=== PATIENT | male | born 1960 | race Caucasian/White ===

== ENCOUNTER → 2021-05-18 16:01 | Outpatient (BNVA) | payer OTHER, SELFPAY | PROVIDERS: Family Provider Internal Medicine; PCP Internal Medicine; Visit Provider Surgery | DX: Z86.010 Personal history of colon polyps (principal); Z20.822 Contact with and (suspected) exposure to COVID-19 | CPT/HCPCS: 87635 ==

== ENCOUNTER 2021-05-21 07:51 | Day surgery (SDC) | payer OTHER, SELFPAY ==
[2021-05-15 10:57] VITALS: BMI 31.1
[2021-05-19 06:38] VITALS: BMI 30.4
[2021-05-21 08:06] VITALS: BP 173/110; PULSE 67; RESP 18; TEMP 36.8; O2SAT 97
[2021-05-21] MEDS: sodium chloride 0.9% 1,000 ML 30 ML IV (08:24)
--- NOTE | 2021-05-21 08:47 | ANES.PREANE2 ---
Pre-Anesthetic Assessment Pre-Anesthetic Assessment: Height/Weight: Height 1.73 m Weight 90.718 kg Temp Pulse Resp BP Pulse Ox 98.3 F 67 18 173/110 97 05/21/21 08:06 05/21/21 08:06 05/21/21 08:06 05/21/21 08:06 05/21/21 08:06 Preop Diagnosis: screening colonoscopy Proposed Procedure: Operation Date: 05/21/21 09:00 Proposed Procedures p Colonoscopy 46322 Z86.010(Not Applicable) - Sunday Morton MD Was Beta Anna taken within 24 hours: N/A Last intake: Intake Last Liquid Date 05/20/21 Last Liquid Time 22:00 Last Solid Date 05/19/21 Last Solid Time 18:00 Social: Social History: No alcohol and No tobacco Exam: Pre-Anes Outpt Exam: alert, oriented x 3, clear to auscultation bilaterally and regular rate & rhythm Airway: Submandibular: WNL Cervical ROM: WNL MP: 2 Dentition: Full History/ROS: No significant history except as noted and No significant complaints Pulmonary: Pulmonary: None reported CV/HEM: CV/HEM: HTN : : None reported Hepatic: Hepatic: None reported GI: GI: None reported Metabolic: Metabolic: None reported Musc/skel: Musc/skel: None reported Neuropsych: Neuropsych: None reported Anesthetic Plan: ASA status: 2 Anesthesia: Anesthesia Evaluation and MAC Risk of > 500 ml blood loss (7ml/kg in children): No Meds/Allergies Current Medications: Current Medications Generic Name Dose Route Start Last Admin Trade Name Freq PRN Reason Stop Dose Admin Sodium Chloride 1,000 mls @ 30 ml s/hr 05/21/21 08:15 05/21/21 08:24 Sodium Chloride 0.9% IV 05/22/21 08:14 30 mls/hr .Q24H HAVEN Administration PFSH Anesthesia PFSH: Medical History Arthritis Hypertension Surgical History History of colonoscopy with polypectomy 2014 History of tonsillectomy History of umbilical hernia repair 2018 Family History Other Cancer Denies family history of Diabetes CAD (coronary artery disease) Hypertension Stroke Social History Smoking and tobacco status: never smoked Alcohol intake: current Alcohol intake frequency: holidays/special occasions only Lives independently: Yes Household members: spouse Marital status: Data Anesthesia Cardiac Studies: No Data to Display
--- NOTE | 2021-05-21 08:49 | W.PM.OPSFHP ---
Same Day Surgery H&P Indication for Procedure/HPI DATE OF PROCEDURE: May 21, 2021 CHIEF COMPLAINT/INDICATIONFOR SURGICAL PROCEDURE: screening colonoscopy PREOP DIAGNOSIS: screening colonoscopy PLANNED PROCEDRUE: Operation Date: 05/21/21 09:00 Proposed Procedures p Colonoscopy 16461 Z86.010(Not Applicable) - Sunday Morton MD Medications/Allergies* Home Medications Medication Instructions Recorded Confirmed Type aspirin 81 mg tablet,delayed 81 mg PO DAILY 04/06/21 05/21/21 History release cholecalciferol (vitamin D3) 25 25 mcg PO DAILY 04/06/21 05/21/21 History mcg (1,000 unit) capsule lisinopril 20 mg tablet 20 mg PO DAILY 04/06/21 05/21/21 History meloxicam 7.5 mg tablet 7.5 mg PO DAILY 04/06/21 05/21/21 History tolterodine 2 mg tablet 2 mg PO DAILY 04/06/21 05/21/21 History lysine [L-Lysine] 1,000 mg PO DAILY 05/21/21 05/21/21 History Allergies/Adverse Reactions Allergy/AdvReac Type Severity Reaction Status Date / Time No Known Allergies Allergy Verified 05/21/21 08:21 Current Medications: Generic Name Dose Route Start Last Admin Trade Name Freq PRN Reason Stop Dose Admin Sodium Chloride 1,000 mls @ 30 mls/hr 05/21/21 08:15 05/21/21 08:24 Sodium Chloride 0.9% IV 05/22/21 08:14 30 mls/hr .Q24H HAVEN Administration Pertinent History/Comorbid Conditions* Medical History (Updated 04/06/21 @ 08:26 by Sunday Morton MD) Arthritis Hypertension Surgical History (Updated 04/06/21 @ 08:26 by Sunday Morton MD) History of colonoscopy with polypectomy 2014 History of tonsillectomy History of umbilical hernia repair 2018 Family History (Updated 04/06/21 @ 08:21 by Maria L Kendrick) Cancer Denies family history of Diabetes CAD (coronary artery disease) Hypertension Stroke Social History Smoking and tobacco status: never smoked Alcohol intake: current Alcohol intake frequency: holidays/special occasions only Lives independently: Yes Household members: spouse Marital status: Pertinent Exam Findings alert, oriented x 3 and regular rate & rhythm Recommendations Surgery/Procedure today Coding Level of Care Code Acute Marketing Research Intern for [employer]
[2021-05-21 09:06] VITALS: BP 146/95; PULSE 67; RESP 20; TEMP 36.4; O2SAT 98
[2021-05-21 09:15] VITALS: BP 167/98; PULSE 66; RESP 18; TEMP 36.8; O2SAT 96
--- NOTE | 2021-05-21 14:01 | ANE.PACU2 ---
Inpatient post-anesthesia follow up: Airway intact: Yes Vital signs: Temperature 98.2 F Pulse Rate 66 Respiratory Rate 18 Blood Pressure 167/98 Pulse Oximetry 96 Oxygen Delivery Me thod Room Air Oxygen Flow Rate Fraction of Inspir ed Oxygen Hydration adequate: Yes Nausea and vomiting: No Pain level: 1 Mental status: Baseline
== END 2021-05-21 10:00 | disposition home or self-care (01) ==
PROVIDERS: PCP Internal Medicine; Visit Provider Surgery
PROC: 0DJD8ZZ Inspection of Lower Intestinal Tract, Via Natural or Artificial Opening Endoscopic (ICD-10-PCS; CPT 45378; principal; 2021-05-21 09:00)
DX: Z12.11 Encounter for screening for malignant neoplasm of colon (principal); Z86.010 Personal history of colon polyps; M19.90 Unspecified osteoarthritis, unspecified site; I10 Essential (primary) hypertension; Z79.82 Long term (current) use of aspirin; Z80.0 Family history of malignant neoplasm of digestive organs; D12.2 Benign neoplasm of ascending colon
CPT/HCPCS: 45380; 88305; 96360; J2704; J7030

== ENCOUNTER 2023-08-21 11:34 | Emergency (ER) | payer OTHER, SELFPAY ==
[2023-08-21 11:44] VITALS: BP 190/105; PULSE 63; RESP 17; O2SAT 97
[2023-08-21 11:49] VITALS: BP 178/110; PULSE 64; RESP 18; TEMP 36.6; O2SAT 95
--- NOTE | 2023-08-21 11:49 | ED_ITS ---
HPI - Male Genitourinary General: Chief complaint: Urogenital-Male Stated complaint: unable to urinate Time Seen by Provider: 08/21/23 11:35 Source: patient Mode of arrival: ambulatory Limitations: no limitations History of Present Illness: Patient is a 63-year-old male who presents to the emergency room for difficulty urination. Patient states that he woke up this morning and stated he was not able to urinate. Patient reports that he had a procedure at [facility] in [place] 2 weeks ago for BPH and urinary retention. Patient denies any complications from procedure. Patient states the past couple days, he has felt some urinary retention and not fully emptying bladder. Denies any pain at this time or other complaints. MD Complaint: dysuria Onset (ago): day(s) (2) Associated symptoms: Deny hematuria, nausea or vomiting Review of Systems Const: Denies: fever(s) or chills Eyes: Denies: change in vision or blurry vision Card: Denies: chest pain or palpitations Resp: Denies: dyspnea or productive cough GI: Denies: abdominal pain, nausea or vomiting : Reports: difficulty urinating, urinary frequency and urinary dribbling; Denies: flank pain or hematuria Musc: Denies: neck pain or back pain PFSH ED 2 PFSH: Medical History Arthritis History of colon polyps Hypertension Surgical History History of colonoscopy with polypectomy (05/21/21) 2015 History of tonsillectomy History of umbilical hernia repair 2018 Family History Other Cancer Denies family history of Diabetes CAD (coronary artery disease) Hypertension Stroke Social History Smoking and tobacco status: never smoked Alcohol intake: current Alcohol intake frequency: holidays/special occasions only Substance/Drug Use: never Lives independently: Yes Household members: spouse Marital status: Physical Exam Const: COMMON NORMALS: no acute distress, patient oriented x3 and healthy appearing GENERAL APPEARANCE: cooperative HENMT: COMMON NORMALS: normocephalic HEAD & SCALP: normocephalic Eye: COMMON NORMALS: Equal, round and reactive pupils present and EOMs intact bilaterally PUPIL: Yes Equal, round and reactive pupils present Neck/C-Spine: COMMON NORMALS: full ROM and no JVD Chest: CHEST: Yes Symmetrical chest wall rise Resp: COMMON NORMALS: normal respiratory effort Cardio: COMMON NORMALS: no JVD and S1 normal heart sound present HEART SOUNDS: S1 normal heart sound present GI: COMMON NORMALS: Normal to inspection, nondistended, normoactive bowel sounds present : COMMON NORMALS: Yes no CVA tenderness BLADDER/KIDNEY EXAM: Yes bladder normal to palpation and Yes no CVA tenderness Back/Pelvis: COMMON NORMALS: no CVA tenderness Neuro: COMMON NORMALS: patient oriented x3 Course Vital Signs: Vital signs: Vital Signs Temperature 98 F 08/21/23 11:49 Pulse Rate 64 08/21/23 11:49 Respiratory Rate 18 08/21/23 11:49 Blood Pressure 178/110 08/21/23 11:49 Pulse Oximetry 95 08/21/23 11:49 Oxygen Delivery Me thod Room Air 08/21/23 11:49 MDM - Male Medical Decision Making Patient presents here with difficulty urinating has been able to urinate here without any difficulty he states he feels improved now. He has appointment with his PCP tomorrow he follows up with urologist later as well he is stable for discharge at this time. Medical Records I reviewed the patient's medical records. Lab Data I reviewed the patient's lab results. Laboratory Results Urine Color Yellow (Yellow) 08/21/23 11:51 Urine Appearance Clear (CLEAR) 08/21/23 11:51 Urine pH 7 (5-7) 08/21/23 11:51 Ur Specific [place] 1.000 (1.005-1.030) L 08/21/23 11:51 Urine Protein Neg (Negative) 08/21/23 11:51 Urine Glucose (UA) Norm (Normal) 08/21/23 11:51 Urine Ketones Negative (Negative) 08/21/23 11:51 Urine Blood 3+ (Negative) H 08/21/23 11:51 Urine Nitrate Negative (Negative) 08/21/23 11:51 Urine Bilirubin Neg (Negative) 08/21/23 11:51 Urine Urobilinogen Norm mg/dL (Negative) 08/21/23 11:51 Ur Leukocyte Esterase 1+ (Negative) H 08/21/23 11:51 Urine RBC 0-4 /hpf (0-2) H 08/21/23 11:51 Urine WBC 5-10 /hpf (0-5) H 08/21/23 11:51 Ur Squamous Epith Cells 0-4 /hpf (0-5) H 08/21/23 11:51 Amorphous Sediment Not Reportable 08/21/23 11:51 Urine Bacteria Trace /hpf (NONE) 08/21/23 11:51 No radiology studies performed this visit Discharge Plan Discharge Patient Disposition: Home Clinical Impression: Difficulty in urination Condition: Stable Prescriptions: No Action lisinopril 20 mg tablet 20 mg PO DAILY aspirin 81 mg tablet,delayed release (DR/EC) 81 mg PO DAILY cholecalciferol (vitamin D3) 25 mcg (1,000 unit) capsule 50 mcg PO DAILY lysine 1,000 mg Tablet 1,000 mg PO DAILY amlodipine 5 mg tablet 5 mg PO DAILY tamsulosin 0.4 mg capsule 0.4 mg PO DAILY hydrochlorothiazide 25 mg tablet 25 mg PO DAILY metoprolol succinate 25 mg tablet extended release 24 hr 25 mg PO DAILY meloxicam 15 mg tablet 15 mg PO DAILY Discharge Orders: Discharge ED (Routine); Ordered 08/21/23 Ordered By: Ryan Leon Referrals: Deepali De La O MD [Primary Care Provider] - 1-3 days Discharge Diet: Advance as tolerated Discharge Activity: Resume usual activity Patient Instructions: Urinary Retention in Men (ED) Coding Level of Care Code ED Wafer Fabricator for Ponce Haddad
--- NOTE | 2023-08-21 12:08 | PC.NURSE ---
Patient voided 325 and had residual 298, urine clear and pale yellow. no pain while urinating.
[2023-08-21 12:42] LABS: Add Urine Microscopic? YES; Bilirubin Urine Neg (Negative); Blood Urine 3+ (Negative); Glucose Urine UA Norm (Normal); Ketones Urine Negative (Negative); Leukocyte Esterase Urine 1+ (Negative); Nitrate Urine Negative (Negative); Protein Urine Neg (Negative); Urine Appearance Clear (CLEAR); Urine Color Yellow (Yellow); Urobilinogen Urine Norm (Negative); pH Urine 7 (5-7)
[2023-08-21 12:43] LABS: Add Urine Culture? No; Bacteria Urine TRACE /hpf; RBC Urine 0-4 /hpf (0-2); Squamous Epithelial Cell Urine 0-4 /hpf (0-5)
[2023-08-21 12:52] VITALS: BP 162/100; PULSE 64; RESP 18; TEMP 36.6; O2SAT 95
== END 2023-08-21 12:58 | disposition home or self-care (01) ==
PROVIDERS: Emergency Provider Emergency Medicine; PCP Internal Medicine
DX: R39.198 Other difficulties with micturition (principal); Z79.82 Long term (current) use of aspirin; I10 Essential (primary) hypertension
CPT/HCPCS: 81001; 99283

== ENCOUNTER 2025-02-20 14:48 | Outpatient (CLI) | payer MEDICARE, SELFPAY | END 2025-02-20 14:49 | disposition home or self-care (01) | LOC: SLEEP 14:50 | PROVIDERS: PCP Internal Medicine; Visit Provider Internal Medicine | DX: G47.33 Obstructive sleep apnea (adult) (pediatric) (principal) | CPT/HCPCS: G0399 ==

== ENCOUNTER → 2025-10-24 15:34 | Outpatient (BNVA) | payer MEDICARE, SELFPAY | PROVIDERS: PCP Internal Medicine; Referring Provider Internal Medicine; Visit Provider Specialist | DX: R20.9 Unspecified disturbances of skin sensation (principal); R20.2 Paresthesia of skin | CPT/HCPCS: 95911 ==